=== PATIENT | female | born 1960 | race Caucasian/White ===

== ENCOUNTER → 2024-07-16 09:25 | Outpatient (BNVA) | payer MEDICAID, SELFPAY | PROVIDERS: Referring Provider Registered Nurse; Visit Provider Internal Medicine | DX: E06.3 Autoimmune thyroiditis (principal); E03.8 Other specified hypothyroidism; R19.7 Diarrhea, unspecified; R63.4 Abnormal weight loss; Z68.20 Body mass index [BMI] 20.0-20.9, adult | CPT/HCPCS: 36415; 84439; 84443; 84480; 99204 ==